=== PATIENT | male | born 1985 | race Caucasian/White ===

== ENCOUNTER → 2020-03-31 | Outpatient (CLI) | payer BC ==
[~2020-03-31] MED LIST: IOHEXOL 240 MG/ML 50ML VIAL. ONE; IOHEXOL 240 MG/ML 50ML VIAL. PO ONE; IOHEXOL 300 MG/ML 75 ML VIAL. IV ONE
--- NOTE | 2020-03-31 13:16 | RAD ---
Examination: CT ABD PELV W/ORAL IV CONTRAST History: DIARRHEA TIMES 2 WEEKS, ALL OVER ABDOMINAL PAIN / Spl. Instructions: DRINKING [id number] / History: Comparison/Correlation: None Findings: Axial images of the abdomen and pelvis were obtained following IV and oral contrast. Sagittal and coronal reformatted images provided. Visualized lung bases are clear. Liver, spleen, pancreas, adrenal glands, kidneys, and gallbladder fossa are normal. Appendix is normal. Moderate quantity of stool in the colon is present. Circumferential wall thickening of left upper mid abdominal small bowel which appears to represent contraction or spasm is present. No bowel obstruction or extraluminal gas. No loculated collections within the abdomen or pelvis. There is subtle stranding about the splenic flexure and descending colon with slight wall thickening. No bowel wall edema. Urinary bladder is unremarkable. Bony structures are unremarkable. Impression: Subtle circumferential wall thickening of the splenic flexure and ascending colon with subtle surrounding stranding. Possibility of mild colitis is raised. No loculated collections. PQRS Compliance Statement: One or more of the following individualized dose reduction techniques were utilized for this examination: 1. Automated exposure control 2. Adjustment of the mA and/or kV according to patient size 3. Use of iterative reconstruction technique Electronically signed by: Gerardo Cannon MD (03/31/2020 1:13 PM) [facility]
== END ==
LOC: CT 11:09
PROVIDERS: ATTEND Family Medicine
DX: R10.84 Generalized abdominal pain (principal)
CPT/HCPCS: 74177; Q9966; Q9967

== ENCOUNTER → 2020-05-18 | Outpatient (CLI) | payer BC ==
[~2020-05-18] MED LIST changes: -IOHEXOL 240 MG/ML 50ML VIAL. ONE; -IOHEXOL 240 MG/ML 50ML VIAL. PO ONE; -IOHEXOL 300 MG/ML 75 ML VIAL. IV ONE; +LOPE-101 PO; +SERT50TA PO
== END ==
LOC: LAB 12:31
PROVIDERS: ATTEND Nurse Anesthetist, Certified Registered
DX: Z01.812 Encounter for preprocedural laboratory examination (principal); K62.5 Hemorrhage of anus and rectum; Z20.828 Contact with and (suspected) exposure to other viral communicable diseases
CPT/HCPCS: U0003

== ENCOUNTER → 2020-05-21 | Day surgery (SDC) | payer BC ==
[~2020-05-21] MED LIST changes: +GLYCOPYRROLATE 1 MG/5 ML VIAL. ONE; +IPRATRPIUM/ALBUTEROL 0.5/2.5MG 3 ML NEBU. NEB PRN; +IV RINGERS SOLUTION,LACTATED 1,000 ML IV SCH; +LIDOCAINE 2% PF 5 ML VIAL. ONE; +MIDAZOLAM HCL PF 2 MG/2 ML VIAL. IV ONE; +ONDANSETRON PF 4 MG/2 ML VIAL. IV PRN; +PROPOFOL 10,000 MCG/ML (20ML) VIAL IV ONE
--- NOTE | 2020-05-21 11:02 | NUR ---
Patient became slightly hypotensive and bradycardic with IV start. BP 88/49 HR 45. Anesthesia aware at bedside. Patient pale but feels okay. Anesthesia gave medication. BP responded to 161/68 HR 57.
[2020-05-21 13:02] VITALS: BP 115/71
--- NOTE | 2020-05-27 09:30 | PATHOLOGY ---
[facility] Accession Number: [id number] . 01 Material submitted: . PART A: colon - RIGHT COLON BIOPSIES. Modifiers: right PART B: colon - TRANSVERSE COLON BIOPSIES. Modifiers: transverse PART C: colon - DESCENDING COLON BIOPSIES. Modifiers: descending PART D: sigmoid colon - SIGMOID COLON BIOPSIES PART E: rectum - RECTUM BIOPSY . 01 Clinical history: . RULE OUT COLITIS, RECTAL BLEED . 02 Diagnosis: A. Colonic mucosa, right colon biopsies: - Focal active colitis. . B. Colonic mucosa, transverse colon biopsies: - No significant pathologic abnormalities. . C. Colonic mucosa, descending colon biopsies: - Active chronic colitis, moderate to marked, without granulomas or specific features. . D. Colonic mucosa, sigmoid colon biopsies: - Active chronic colitis, moderate to marked, without granulomas or specific features. . E. Colorectal mucosa, rectal biopsies: - Active chronic colitis, moderate to marked, without granulomas or specific features. . (JPM:mmwilliam; 05/26/2020) [facility] 05/26/[address] [place] [address] . 02 Comment: Sections of the right colon biopsy reveal multiple segments of colonic mucosa, which for the most part histologically appear normal. However, there are several scattered microscopic foci of acute neutrophilic crypt injury. There is no crypt architectural distortion or other morphologic features of a chronic destructive colitis. . Sections of the transverse colon biopsy reveal multiple segments of colonic mucosa showing no diagnostic abnormalities. . Sections of the descending colon, sigmoid colon, and rectal biopsies appear similar and reveal multiple segments of colonic and colorectal mucosa showing moderate to marked active chronic inflammation with foci of acute cryptitis/crypt abscesses and crypt architectural distortion. There are no granulomas or specific features. The findings are supportive of the diagnosis of active chronic inflammatory bowel disease. There is no dysplasia or evidence of malignancy. Correlate clinically. (JPM:mml; 05/26/2020) . 02 Electronically signed: . Roni Wood MD, Pathologist NPI- [id number] . 01 Gross description: . A. The specimen is received in formalin, labeled "Garland Anthony, R colon biopsy". Received are five segments of pale pantoja soft tissue ranging in size from 0.2 to 0.5 cm in maximum dimensions. The specimen is submitted entirely in cassette A1. . B. The specimen is received in formalin, labeled "Garland Anthony, transverse colon biopsy". Received are multiple segments of pale pantoja soft tissue ranging in size from 0.3 to 0.4 cm in maximum dimensions. The specimen is submitted entirely in cassette B1. . C. The specimen is received in formalin, labeled "Garland Anthony, descending colon biopsies". Received are multiple segments of pale pantoja soft tissue ranging in size from 0.3 to 0.5 cm in maximum dimensions. The specimen is submitted entirely in cassette C1. . D. The specimen is received in formalin, labeled "Garland Anthony, sigmoid colon biopsies". Received are multiple segments of pale pantoja soft tissue ranging in size from 0.3 to 0.6 cm in maximum dimensions. The specimen is submitted entirely in cassette D1. . E. The specimen is received in formalin, labeled "Garland Anthony, rectum biopsies". Received are multiple segments of pale pantoja soft tissue ranging in size from 0.3 to 0.4 cm in maximum dimensions. The specimen is submitted entirely in cassette E1. (CAA; 05/25/2020) QA/QA 05/25/2020 1705 Local . 02 Pathologist provided ICD-10: K52.9, K92.1 . 02 CPT . 913999, 634031, 078895, 046616, 106805 Specimen Comment: A courtesy copy of this report has been sent to [phone], [phone] Specimen Comment: [id number] Specimen Comment: Report sent to / DR CROOKS Specimen Comment: A duplicate report has been generated due to demographic updates. Performed at: 01 [facility] [address], [place] [id number] MD Adama Zimmerman MD Phone: [phone] Performed at: 02 [facility] [id number] MD Roni Wood MD Phone: [phone]
== END | disposition home or self-care (01) ==
LOC: SURG 10:31
PROVIDERS: ATTEND Internal Medicine Gastroenterology
DX: K52.89 Other specified noninfective gastroenteritis and colitis (principal); K62.5 Hemorrhage of anus and rectum; K64.0 First degree hemorrhoids; K63.89 Other specified diseases of intestine; R10.84 Generalized abdominal pain; Z79.899 Other long term (current) drug therapy
CPT/HCPCS: 45380; J2001; J2704; J3490; J7120